=== PATIENT | female | born 1955 | race Caucasian/White ===

== ENCOUNTER 2023-05-09 11:40 | Emergency (ER) | payer SELFPAY ==
[2023-05-09 12:02] VITALS: BP 118/82
--- NOTE | 2023-05-09 12:40 | ED.GENMED ---
History of Present Illness
General
Chief Complaint: Crisis Evaluation
Source: patient
Exam Limitations: none
Time Seen by Provider: 05/09/23 12:07
Nursing documentation reviewed up to this point in time: agreed with
Travel History
Have you had any contact with someone who has COVID-19?: No
Do you have any symptoms of coronavirus? Fever > 100 degrees, chills, cough, shortness of breath, sore throat, loss of taste or smell, muscle aches, or headache?: No
History of Present Illness
History of Present Illness:
Patient is a 67-year-old female presents to the medical ER crisis for evaluation. Patient had a 302 filed by her sister for' delusional thinking that she can do things herself but she is not following through with anything.' Patient was evicted
from her mother's house April 11, 2023.
Patient presents awake alert no acute distress she is cooperative. She does state that she was evicted from her mother's house and is currently homeless. She tells me she is living in her car.
Patient has no interest in a jail. 302 that was completed by patient's sister mentions patient has not been caring for herself and showering. There is concern about hoarding.
She has no thoughts of harming herself or others
She denies any history of suicidal ideation in the past She admits to being on antidepressant years ago when she was going through a divorce however no longer takes any medication.
Patient has no physical complaints.
Review of Systems
Review of Systems
Allergies reviewed?: Yes
All Other Systems: ROS reviewed and negative except as documented in HPI and ROS
Constitutional: Reports no symptoms; Denies fever, fatigue or chills
Respiratory: Reports no symptoms
Cardiac: Reports no symptoms
ABD/GI: Reports no symptoms
: Reports no symptoms
Musculoskeletal: Reports no symptoms
Skin: Reports no symptoms
Neurological: Reports no symptoms
Hematologic/Lymphatic: Reports no symptoms
Psychiatric: Reports no symptoms
Phy Exam
General Physical Exam
General Presentation: no apparent distress
General age: appears stated age
General Skin: warm and dry
General Habitus: normal
General Mental: alert
General Hydration: appears well hydrated
Cardiovascular Exam
Cardiovascular Exam: regular rate/rhythm, no murmur and normal peripheral pulses
Pulmonary Exam
Pulmonary Exam: lungs clear and no respiratory distress
Neurological Exam
Neurological Exam: alert and oriented x3
Musculoskeletal Exam
Musculoskeletal Exam: full ROM
Skin Exam
Skin Exam: normal color and warm/dry
Psychiatric Exam
Psychiatric Exam: normal mood/affect
Course
Orders/Labs/Results
Orders:
Orders
05/09/23 13:25
Crisis Consult Urgent
Reason for Consult: mental status change
Vital Signs
Initial and Last Documented VS:
Initial Vital Signs
Temp Pulse Resp BP Pulse Ox
98.5 F 101 18 118/82 98
05/09/23 12:02 05/09/23 12:02 05/09/23 12:02 05/09/23 12:02 05/09/23 12:02
Last Documented Vital Signs
Temp Pulse Resp BP Pulse Ox
98.3 F 107 18 135/74 100
05/09/23 14:25 05/09/23 14:25 05/09/23 14:25 05/09/23 14:25 05/09/23 14:25
MDM/Problems Addressed
Differential Diagnosis Includes:
not limited to: Psychiatric evaluation
MDM/Problems Addressed:
Patient is a 67-year-old female who was evaluated by crisis. Patient sister filed a 302 as she was concerned about patient's wellbeing. Patient has been living in her car and despite being offered help and money and assistance she has declined.
Paperwork expressed concern for hoarding. Patient presented here awake alert no acute distress she is calm and cooperative. She has no physical complaints. She had no homicidal or suicidal thoughts. She denied. She was eval by psychiatry 302
was not upheld. Patient does not pose a risk to herself or others. She declines all help. She was evaluated by crisis. I had specifically asked patient if she wanted jail information she again declines. Patient to be discharged.
*Pulse Oximetry
Patient hypoxic: no
*Critical Care Note
Total Time (30-74mins, 75-104mins- exclusive of procedures): Not Applicable
ED Attending Note
-
Portions of this chart may have been created with voice recognition software.� Occasional wrong word or��sound alike� substitutions may have occurred due to the inherent limitations of voice recognition software.
Discharge Plan
Departure
Patient Disposition: Home (Routine Discharge)
Date of Disposition: 05/09/23
Time of Disposition: 14:55
Patient with high blood pressure during this ER visit?: Yes
Condition: Fair
Covid-19: Not Applicable
Discharge Problem:
Encounter for psychiatric assessment
Referrals:
UNKNOWN,NO INTERVIEW [Family Provider] -
Activity Restrictions/Additional Instructions:
You were evaluated today by psychiatry and you do not need hospitalization for crisis. you were offered resources however declined .return of any worsening of symptoms
Interventions
Interventions:
*Risk Screen - Suicide Last Done: 05/09/23 12:10
*General Assessment Last Done: 05/09/23 12:10
*Neglect/Abuse Screening Last Done: 05/09/23 12:10
*ED COVID-19 Vaccine History Last Done: 05/09/23 12:10
*Nursing Disposition Last Done: 05/09/23 15:44
ED-Psychological Assessment Last Done: 05/09/23 12:11
Discharge Date and Time
Discharge Date/Time: 05/09/23 15:44
[2023-05-09 14:25] VITALS: BP 135/74
--- NOTE | 2023-05-09 15:29 | W.PN.UPDATE ---
Update Note
Progress Note Update
Pt seen for 302 exam. Pt alert, oriented, calm, cooperative, pleasant. Pt states she prefers wholistic treatment; also declines case management because she wants to make her own decisions. Pt states she feels optimistic/ keeps a positive outlook
on the future, states she has a plan to move forward. She appears to be in some denial about her financial and housing situation, with no income or benefits. Pt denies any SI or depression. She shows no overt signs of psychosis. Pt is not
threatening or agitated. Affect is appropriate, stable.
Imp: Hx of Schizoaffective d/o, with no active signs of mental illness, brought in on allegations of inability to care for self
Rec: 302 not upheld; pt does not present immediate danger to self/others, does not show signs of severe mental illness
Outpatient therapy and case management
--- NOTE | 2023-05-09 15:31 | CM ---
CM assisted patient with ride to her car. Patient is currently homeless and was given [facility] resources by crisis.
== END 2023-05-09 15:44 | disposition home or self-care (01) ==
LOC: EMR 11:40
PROVIDERS: EMERGENCY PHYSICIAN Emergency Medicine; OTHER PHYSICIAN Psychiatry & Neurology Psychiatry
DX: Z13.39 Encounter for screening examination for other mental health and behavioral disorders (principal); Z59.02 Unsheltered homelessness; R03.0 Elevated blood-pressure reading, without diagnosis of hypertension
CPT/HCPCS: 99283